=== PATIENT | female | born 1940 | race Two or more races ===

== ENCOUNTER → 2019-12-03 | Outpatient (CLI) | payer MEDICARE ==
--- NOTE | 2019-12-03 22:09 | CT ---
EXAMINATION TYPE: CT abdomen pelvis wo con DATE OF EXAM: 12/03/2019 HISTORY: abdominal/flank pain left. CT DLP: 1141 mGycm. Automated Exposure Control for Dose Reduction was Utilized. TECHNIQUE: CT scan of the abdomen and pelvis is performed without oral or IV contrast. COMPARISON: CT abdomen pelvis September 28, 2013 FINDINGS: Within the limitations of a non-contrast study, the following observations are made. LUNG BASES: Cardiomegaly with coronary artery calcification. LIVER/GB: Gallbladder not seen and presumed surgically absent. PANCREAS: Large 5.7 cm calcification at region of distal pancreatic body redemonstrated.. SPLEEN: No significant abnormality is seen. ADRENALS: No significant abnormality is seen. KIDNEYS: Small nonobstructing renal calculi bilaterally. Roughly 5-8 calculi measuring under 2 mm in size scattered throughout left kidney. Roughly 10-15 calculi scattered throughout right kidney measur ing up to 4 mm in size posteriorly upper pole level axial image 38. No hydronephrosis or obstructing ureter calculi bilaterally. Roughly 1 cm hemorrhagic cyst mid pole level left kidney axial image 37. BOWEL: Oral contrast does not reach level of the terminal ileum. No suspicious small or large bowel d ilatation. Small bowel feces sign terminal ileum consistent with delayed passage of ingested material 2 colonic level. Normal-appearing appendix from cecum in the right upper pelvis. Scattered colonic d iverticula. GENITAL ORGANS: Anteverted uterus. LYMPH NODES: No greater than 1cm abdominal or pelvic lymph nodes are appreciated. OSSEOUS STRUCTURES: Metallic hardware from bilateral hip arthroplasty causes streak artifact limiting evaluation of pelvic structures. Scattered bilateral pelvic phleboliths. Scoliotic curvature lower l umbar spine. [id number] disc space narrowing and vacuum disc phenomenon in the lower lumbar l evels. OTHER: Subcutaneous jayleen over the midline of the lower abdomen and pelvis. Infrarenal IVC filter. IMPRESSION: 1. Multiple nonobstructing tiny renal calculi bilaterally. No hydronephrosis or obstructing renal rachel culi clearly seen bilaterally. 2. Stable 5.7 cm left upper abdominal calcified lesion of uncertain etiology. Possible calcified aneu rysm, chronic hematoma, long-standing calcified pseudocyst, or even possible chronic foreign body.
== END | disposition home or self-care (01) ==
LOC: RADCTMAIN 15:14
PROVIDERS: ATTEND Internal Medicine
DX: N20.0 Calculus of kidney (principal); K31.89 Other diseases of stomach and duodenum; Z88.2 Allergy status to sulfonamides
CPT/HCPCS: 36415; 74176; 82565; 84520